=== PATIENT | male | born 1960 | race African-American/Black ===

== ENCOUNTER 2023-08-13 08:30 | Inpatient (IN) | payer OTHER ==
[~2023-08-13] VITALS: Ht 185.4 cm; Wt 123.6 kg
--- NOTE | 2023-08-13 11:10 | NUR ---
MSE COMPLETE BY NEELAM REED.
[2023-08-13 11:29] LABS: BASOPHILS % (AUTO) 0.3 % (0-1); EOSINOPHILS # (AUTO) 0.1 X10'3 (0-0.9); EOSINOPHILS % (AUTO) 0.7 % (0-6); HEMATOCRIT 47.4 % (42.0-52.0); LYMPHOCYTES # (AUTO) 2.7 X10'3 (1.1-4.8); MONOCYTES # (AUTO) 0.6 X10'3 (0-0.9); NEUTROPHILS # (AUTO) 5.2 X10'3 (1.8-7.7); WHITE BLOOD COUNT 8.6 X10'3 (4.5-11.0)
[2023-08-13 11:31] LABS: HEMOGLOBIN 15.2 g/dl (14.0-17.9); LYMPHOCYTES % (AUTO) 31.5 % (21-51); MEAN CORPUSCULAR HEMOGLOBIN 29.2 PG (27.0-31.0); MEAN CORPUSCULAR HGB CONC 32.1 g/dL (33.0-36.5); MEAN CORPUSCULAR VOLUME 91.1 FL (78-98); MEAN PLATELET VOLUME 10.6 FL (7.4-10.4); NEUTROPHILS % (AUTO) 60.5 % (42-75); PLATELET COUNT 159 X10'3 (140-440); RED BLOOD COUNT 5.21 X10'6 (4.70-6.10); RED CELL DISTRIBUTION WIDTH 16.6 % (11.5-14.5)
[2023-08-13 11:45] LABS: ALANINE AMINOTRANSFERASE 24 U/L (12-78); ALBUMIN 3.7 G/DL (3.4-5.0); ALKALINE PHOSPHATASE 58 IU/L (46-116); ANION GAP 8 (8-16); ASPARTATE AMINO TRANSFERASE 17 U/L (10-37); BILIRUBIN,TOTAL 1.3 MG/DL (0.1-1.0); BLOOD UREA NITROGEN 9 MG/DL (7-18); BUN/CREATININE RATIO 9.8 (10.0-20.0); CALCIUM 9.1 MG/DL (8.5-10.1); CHLORIDE 102 MMOL/L (99-107); CREATININE 0.92 MG/DL (0.60-1.10); GLUCOSE 95 MG/DL (70-104); POTASSIUM 3.5 MMOL/L (3.5-5.1); SODIUM 140 MMOL/L (135-145); TOTAL CARBON DIOXIDE 29.9 MMOL/L (24-32); TOTAL PROTEIN 7.5 G/DL (6.4-8.2); eCRCL 94 ML/MIN; eGFR 83 ML/MIN
[2023-08-13 11:47] LABS: LIPASE 31 U/L (16-77)
[2023-08-13 12:06] LABS: BILIRUBIN,URINE SMALL (Neg); CLARITY,URINE CLEAR (Clear); COLOR,URINE YELLOW (Yellow); GLUCOSE, URINE NEGATIVE (Neg); KETONES,URINE NEGATIVE (Neg); LEUKOCYTE ESTERASE ,URINE NEGATIVE (Neg); NITRITES, URINE NEGATIVE (Neg); OCCULT BLOOD,URINE NEGATIVE (Neg); PH,URINE 5.5 (4.8-8.0); PROTEIN,URINE TRACE mg/dl (Neg)
[2023-08-13 12:17] LABS: BACTERIA,URINE NONE SEEN /HPF (Neg); MUCUS STRANDS MODERATE /LPF (Neg); RBC,URINE NONE SEEN /HPF (0-2); SQUAMOUS EPITHELIAL CELL,UR FEW /LPF (FEW); UA COLLECTION TYPE CLN CATCH MIDSTREAM; WBC,URINE NONE SEEN /HPF (0-4)
[2023-08-13] MEDS ORDERED: normal saline 1000ml 1,000 ML IV SCH (14:15)
[2023-08-13] MEDS ORDERED: HYDROmorphone inj. 0.5 MG/0.5 ML DISP.SYRIN IV ONE (14:15)
[2023-08-13] MEDS ORDERED: ondansetron/PF 4mg/2ml inj IV ONE (14:15)
[2023-08-13] MEDS ORDERED: iohexol 300mg/ml 100ml inj. ONE (14:33)
[2023-08-13] MEDS ORDERED: mag hydrox/Alum hydrox/simeth 30ml oral suspension PO PRN (16:45)
[2023-08-13] MEDS ORDERED: magnesium hydroxide 30ml (MOM) UD suspension PO PRN (16:45)
[2023-08-13] MEDS ORDERED: magnesium 2GM in 50ml NS 50 ML IV PRN (16:45)
[2023-08-13] MEDS ORDERED: magnesium Cl slow-release 64mg tablet PO PRN (16:45)
[2023-08-13] MEDS ORDERED: potassium Cl 40MEQ/1/2NS 520ml 520 ML IV PRN (16:45)
[2023-08-13] MEDS ORDERED: acetaminophen 325mg tablet PO PRN (16:45)
[2023-08-13] MEDS ORDERED: ondansetron/PF 4mg/2ml inj IV PRN (16:45)
[2023-08-13] MEDS ORDERED: potassium Cl 20 mEq SR tablet PO PRN ×2 (16:45)
[2023-08-13] MEDS ORDERED: magnesium 4gm in 100ml NS 100 ML IV PRN (16:45)
[2023-08-13] MEDS ORDERED: HYDROmorphone inj. 0.5 MG/0.5 ML DISP.SYRIN IV PRN (16:45)
[2023-08-13] MEDS ORDERED: pantoprazole 40 MG vial IV SCH (17:05)
[2023-08-13] MEDS ORDERED: hydrALAZINE 20mg/ml inj. IV PRN (17:10)
[2023-08-13] MEDS: normal saline 1000ml 1,000 ML IV SCH ×2 (17:14→23:14)
[2023-08-13] MEDS ORDERED: HYDROcodone/acetaminophen 5mg/325mg tablet PO PRN (17:15)
[2023-08-13 18:55] VITALS: BP 158/87; PULSE 90; RESP 17; TEMP 97.9; O2SAT 98
[2023-08-13] MEDS: K and/or MAG REPLACEMENT MC SCH (19:00)
[2023-08-13] MEDS: docusate sod 100mg capsule PO SCH (19:10)
[2023-08-13 20:00] VITALS: RESP 17; O2SAT 96
[2023-08-13] MEDS ORDERED: NO HOME MEDS PO (20:39)
[2023-08-13] MEDS ORDERED: NO HOME MEDS (20:43)
[2023-08-13 22:00] VITALS: BP 126/87; PULSE 92; RESP 18; TEMP 97.9; O2SAT 97
[2023-08-14 05:47] LABS: ANION GAP 5 (8-16); BLOOD UREA NITROGEN 8 MG/DL (7-18); BUN/CREATININE RATIO 8.8 (10.0-20.0); CALCIUM 8.4 MG/DL (8.5-10.1); CHLORIDE 105 MMOL/L (99-107); CHOL/HDL RATIO 6.5 (0.00-4.99); CHOLESTEROL 255 MG/DL (0-200); CREATININE 0.91 MG/DL (0.60-1.10); GLUCOSE 85 MG/DL (70-104); HDL CHOLESTEROL 39 MG/DL (35-60); LDL CHOLESTEROL 189 MG/DL (50-100); MAGNESIUM 2.2 MG/DL (1.5-2.4); PHOSPHORUS 3.9 MG/DL (2.3-4.5); POTASSIUM 3.5 MMOL/L (3.5-5.1); SODIUM 141 MMOL/L (135-145); TOTAL CARBON DIOXIDE 30.8 MMOL/L (24-32); TRIGLYCERIDES 95 MG/DL (20-135); eCRCL 95 ML/MIN; eGFR > 90 ML/MIN
[2023-08-14 05:52] LABS: EOSINOPHILS # (AUTO) 0.1 X10'3 (0-0.9); HEMOGLOBIN 13.8 g/dl (14.0-17.9); LYMPHOCYTES % (AUTO) 27.8 % (21-51); MONOCYTES # (AUTO) 0.5 X10'3 (0-0.9); NEUTROPHILS # (AUTO) 4.5 X10'3 (1.8-7.7)
[2023-08-14 05:54] LABS: BASOPHILS % (AUTO) 0.3 % (0-1); EOSINOPHILS % (AUTO) 1.5 % (0-6); HEMATOCRIT 42.3 % (42.0-52.0); MEAN CORPUSCULAR HEMOGLOBIN 29.7 PG (27.0-31.0); MEAN CORPUSCULAR HGB CONC 32.8 g/dL (33.0-36.5); MEAN CORPUSCULAR VOLUME 90.7 FL (78-98); MEAN PLATELET VOLUME 10.5 FL (7.4-10.4); MONOCYTES % (AUTO) 7.5 % (2-12); NEUTROPHILS % (AUTO) 62.9 % (42-75); PLATELET COUNT 130 X10'3 (140-440); RED BLOOD COUNT 4.66 X10'6 (4.70-6.10); RED CELL DISTRIBUTION WIDTH 16.2 % (11.5-14.5); WHITE BLOOD COUNT 7.1 X10'3 (4.5-11.0)
[2023-08-14 06:00] VITALS: BP 119/62; PULSE 96; RESP 18; TEMP 98; O2SAT 97
--- NOTE | 2023-08-14 07:21 | NUR ---
Patient in room ORTHO 4012A. I have received report from BERE Stover and had the opportunity to ask questions and assume patient care.
[2023-08-14] MEDS: pantoprazole 40 MG vial IV SCH ×2 (07:50→19:27)
[2023-08-14] MEDS: enoxaparin 40mg/0.4ml syringe SUBCUT SCH (07:50)
[2023-08-14] MEDS: docusate sod 100mg capsule PO SCH ×2 (07:50→19:27)
[2023-08-14] MEDS: K and/or MAG REPLACEMENT MC SCH ×2 (07:57→19:25)
[2023-08-14 08:00] VITALS: RESP 18; O2SAT 97
[2023-08-14] MEDS: normal saline 1000ml 1,000 ML IV SCH ×2 (08:50→17:59)
[2023-08-14 11:00] VITALS: BP 121/85; PULSE 77; RESP 16; TEMP 98.6; O2SAT 97
[2023-08-14] MEDS: acetaminophen 325mg tablet PO PRN (13:54)
--- NOTE | 2023-08-14 17:25 | NUR ---
I have reviewed and agree with all interventions, assessments performed and documented by DUARTE NICOLAS.
--- NOTE | 2023-08-14 18:19 | NUR ---
Problems reprioritized. Patient report given, questions answered & plan of care reviewed with BERE eRynoso.
[2023-08-14 22:00] VITALS: BP 132/83; PULSE 79; RESP 19; TEMP 98.6; O2SAT 98
--- NOTE | 2023-08-15 00:45 | NUR ---
Patient in room ORTHO 4012. I have received report from DANIEL and had the opportunity to ask questions and assume patient care.PT RESTING
[2023-08-15] MEDS: normal saline 1000ml 1,000 ML IV SCH (03:14)
[2023-08-15 06:00] VITALS: BP 142/89; PULSE 79; RESP 19; TEMP 98.7; O2SAT 98
[2023-08-15 06:05] LABS: EOSINOPHILS # (AUTO) 0.2 X10'3 (0-0.9); HEMOGLOBIN 13.7 g/dl (14.0-17.9); LYMPHOCYTES # (AUTO) 2.3 X10'3 (1.1-4.8); MONOCYTES # (AUTO) 0.5 X10'3 (0-0.9); NEUTROPHILS # (AUTO) 3.8 X10'3 (1.8-7.7); WHITE BLOOD COUNT 6.9 X10'3 (4.5-11.0)
[2023-08-15 06:08] LABS: BASOPHILS % (AUTO) 0.6 % (0-1); HEMATOCRIT 41.9 % (42.0-52.0); LYMPHOCYTES % (AUTO) 33.3 % (21-51); MEAN CORPUSCULAR HEMOGLOBIN 29.7 PG (27.0-31.0); MEAN CORPUSCULAR HGB CONC 32.6 g/dL (33.0-36.5); MEAN CORPUSCULAR VOLUME 91.1 FL (78-98); MEAN PLATELET VOLUME 10.7 FL (7.4-10.4); MONOCYTES % (AUTO) 7.8 % (2-12); NEUTROPHILS % (AUTO) 55.3 % (42-75); PLATELET COUNT 121 X10'3 (140-440); RED CELL DISTRIBUTION WIDTH 16.3 % (11.5-14.5)
[2023-08-15 06:23] LABS: ALBUMIN 2.9 G/DL (3.4-5.0); ANION GAP 6 (8-16); BLOOD UREA NITROGEN 12 MG/DL (7-18); BUN/CREATININE RATIO 12.1 (10.0-20.0); CALCIUM 8.9 MG/DL (8.5-10.1); CHLORIDE 106 MMOL/L (99-107); CREATININE 0.99 MG/DL (0.60-1.10); GLUCOSE 94 MG/DL (70-104); MAGNESIUM 2.2 MG/DL (1.5-2.4); SODIUM 141 MMOL/L (135-145); TOTAL CARBON DIOXIDE 29.5 MMOL/L (24-32); eCRCL 87 ML/MIN; eGFR > 90 ML/MIN
--- NOTE | 2023-08-15 06:45 | NUR ---
Patient in room ORTHO 4012A. I have received report from BERE LAIRD and had the opportunity to ask questions and assume patient care.
--- NOTE | 2023-08-15 07:06 | NUR ---
Problems reprioritized. Patient report given, questions answered & plan of care reviewed with LAUREN.
[2023-08-15] MEDS: K and/or MAG REPLACEMENT MC SCH (08:00)
[2023-08-15 08:43] LABS: PLATELET ESTIMATE DECREASED; TOTAL CELLS COUNTED 100
[2023-08-15 08:44] LABS: ANISOCYTOSIS 1+; ELLIPTOCYTES FEW; GIANT PLATELET FEW; LARGE PLATELETS FEW; SMUDGE CELLS FEW; TOXIC GRANULATION 1+; TOXIC VACUOLATION FEW
[2023-08-15 10:00] VITALS: BP 169/100; PULSE 90; RESP 16; TEMP 98.2; O2SAT 99
[2023-08-15] MEDS: docusate sod 100mg capsule PO SCH (10:49)
[2023-08-15 10:50] VITALS: BP_SYST 169; PULSE 90
[2023-08-15] MEDS: enoxaparin 40mg/0.4ml syringe SUBCUT SCH (10:53)
[2023-08-15] MEDS: acetaminophen 325mg tablet PO PRN (10:57)
[2023-08-15] MEDS: pantoprazole 40 MG vial IV SCH (12:45)
--- NOTE | 2023-08-15 12:52 | NUR ---
PATIENT STABLE AND APPROPRIATE FOR DISCHARGE, IV REMOVED, EDUCATION GIVEN, ALL BELONGINGS SENT WITH PATIENT, [facility]I CALLED FOR PATIENT AND PAID FOR BY HOSPITAL, PATIENT TAKEN TO LOBBY BY WHEELCHAIR TO AN AWAITING TAXI THAT WILL TAKE PATIENT TO HIS TRUCK
== END 2023-08-15 12:30 | disposition home or self-care (01) | DRG 392 ==
LOC: ER 08:30 → ORTHO 4S 16:52
PROVIDERS: ADMIT Internal Medicine; ATTEND Internal Medicine
PROC: BW211ZZ Computerized Tomography (CT Scan) of Abdomen and Pelvis using Low Osmolar Contrast (ICD-10-PCS; principal; 2023-08-13)
DX: A08.4 Viral intestinal infection, unspecified (principal); K56.7 Ileus, unspecified; K29.70 Gastritis, unspecified, without bleeding; I10 Essential (primary) hypertension; E78.5 Hyperlipidemia, unspecified; R00.2 Palpitations; K76.0 Fatty (change of) liver, not elsewhere classified; K42.9 Umbilical hernia without obstruction or gangrene; K40.20 Bilateral inguinal hernia, without obstruction or gangrene, not specified as recurrent; K57.30 Diverticulosis of large intestine without perforation or abscess without bleeding; I95.9 Hypotension, unspecified; Z87.11 Personal history of peptic ulcer disease; Z87.891 Personal history of nicotine dependence
CPT/HCPCS: 36415; 71045; 74177; 80048; 80053; 80061; 81001; 83036; 83605; 83690; 83735; 84100; 84484; 85007; 85025; 87081; 99285; C9113; G0378; J0360; J1170; J1650; J2405; J3490; J7030; Q9967